=== PATIENT | female | born 1970 | race Caucasian/White ===

== ENCOUNTER 2021-03-27 08:43 | Emergency (ER) | payer OTHER ==
[~2021-03-27] VITALS: Ht 165.1 cm; Wt 72.6 kg
[2021-03-27 08:50] VITALS: BP_SYST 131
[2021-03-27] MEDS ORDERED: HYDROcodone/ACETAMIN 5-325 MG TAB (NORCO/ VICODIN) PO ONE (09:30)
[2021-03-27 10:14] LABS: BASOPHILS % (AUTO) 0.5 % (0.0-2.0); EOSINOPHILS # (AUTO) 0.1 K/uL (0.0-0.4); EOSINOPHILS % (AUTO) 1.8 % (0.0-4.0); HEMATOCRIT 36.7 % (36-48); HEMOGLOBIN 12.1 g/dL (12.0-16.0); LYMPHOCYTES # (AUTO) 1.4 K/uL (1.0-5.5); LYMPHOCYTES % (AUTO) 24.5 % (20.5-51.5); MEAN CORPUSCULAR HEMOGLOBIN 30 pg (27-31); MEAN CORPUSCULAR HGB CONC 33 % (32-36); MEAN CORPUSCULAR VOLUME 91 fL (79.0-98.0); MONOCYTES # (AUTO) 0.2 K/uL (0.0-1.0); NEUTROPHILS % (AUTO) 69.2 % (40.0-70.0); PLATELET COUNT (AUTO) 175 K/uL (130-430); RED BLOOD CELL COUNT(AUTO) 4.03 MIL/uL (4.2-6.2); RED CELL DISTRIBUTION WIDTH 14.2 % (9.0-15.0); WHITE BLOOD COUNT (AUTO) 5.8 K/uL (4.8-10.8)
[2021-03-27 10:24] LABS: CALCIUM 8.6 mg/dL (8.4-11.0); CREATININE 0.67 mg/dL (0.55-1.30); POTASSIUM 3.9 mmol/L (3.5-5.1)
[2021-03-27] MEDS ORDERED: IBUP-1969 PO (12:56)
[2021-03-27] MEDS ORDERED: AMOX-423 PO (12:56)
[2021-03-27] MEDS ORDERED: HYDR-3917 PO (12:56)
[2021-03-27 13:52] VITALS: BP_SYST 127
[2021-03-28] MEDS ORDERED: ONDA-8 TL (03:53)
== END 2021-03-27 13:59 | disposition home or self-care (01) ==
LOC: SED 08:43
DX: K11.20 Sialoadenitis, unspecified (principal); Z79.899 Other long term (current) drug therapy; Z98.890 Other specified postprocedural states
CPT/HCPCS: 36415; 70487; 76376; 80048; 82150; 83605; 85025; 87040; 99285; Q9967

== ENCOUNTER 2021-03-28 01:33 | Emergency (ER) | payer OTHER ==
[~2021-03-28] VITALS: Ht 160 cm; Wt 108.9 kg
[~2021-03-28 01:33] MED LIST: AMOX-423 PO; HYDR-3917 PO; IBUP-1969 PO
[2021-03-28 01:56] VITALS: BP_SYST 138
--- NOTE | 2021-03-28 01:56 | NUR ---
Patient to ER bed 8 to gown for evaluation. Side rails up.
--- NOTE | 2021-03-28 02:00 | NUR ---
PATIENT ALERT & ORIENTED X4 FROM HOME C/O RIGHT JAW PAIN THAT IS UNRELIEVED BY NORCO 10-325MG TAKEN AT 530PM AND MOTRIN TAKEN AT 8PM. PATIENT WAS SEEN HERE EARLIER TODAY FOR BLOCKED PAROTID DUCT & PRESCRIBED TWO PAIN MEDICATIONS MENTIONED ABOVE AND AUGMENTIN. PATIENT STATES SHE CANNOT STAND PAIN AND C/O NAUSEA. PAIN IS 9/10. PATIENT PLACED ON MONITOR, VSS, BREATHING EVEN AND UNLABORED, NO SIGNS OF ACUTE DISTRESS. AT BEDSIDE, WILL CONTINUE TO MONITOR.
--- NOTE | 2021-03-28 02:23 | NUR ---
ER Dr. ALVES at bedside examining patient.
[2021-03-28] MEDS ORDERED: NORMAL SALINE 5 ML DISP.SYRIN IVF ONE (02:45)
[2021-03-28] MEDS ORDERED: NACL 0.9% 1,000 ML IV ONE (02:45)
[2021-03-28] MEDS ORDERED: MORPHINE 4 MG INJ. 4 MG/ML VIAL IVP ONE (02:45)
[2021-03-28] MEDS ORDERED: cefTRIAXone 1 GM in D5W 50 ML IV ONE (02:45)
[2021-03-28] MEDS ORDERED: PROCHLORPERAZINE EDISYLATE 10 MG/2 ML VIAL IVP ONE (02:45)
--- NOTE | 2021-03-28 02:55 | NUR ---
# 20 gauge angiocath placed to RIGHT AC. Use of asceptic technique. Opsite placed over site. Blood return noted. Flushed with 10 cc of normal saline. No evidence of infiltration noted. Patient tolerated well.
[2021-03-28] MEDS ORDERED: cefTRIAXone 1 GM VIAL ONE (03:05)
--- NOTE | 2021-03-28 03:15 | NUR ---
PER DR. ALVES, BLOOD CULTURES NOT NEEDED PRIOR TO ANTIBIOTIC ADMINISTRATION. PATIENT HAD BLOOD CULTURES DRAWN ON 03/27/21 VISIT.
--- NOTE | 2021-03-28 03:52 | NUR ---
PATIENT AMBULATED WITH STEADY GAIT.
[2021-03-28] MEDS ORDERED: ONDA-8 TL (03:53)
[2021-03-28 04:07] VITALS: BP_SYST 128
--- NOTE | 2021-03-28 04:07 | NUR ---
Patient given written and verbal discharge instructions and verbalizes understanding. ER MD discussed with patient the results and treatment provided. Patient in stable condition. ID arm band removed. IV catheter removed intact and dressing applied, no active bleeding. Rx of ZOFRAN given. Patient educated on pain management and to follow up with PMD. Pain Scale 6/10. Opportunity for questions provided and answered. Medication side effect fact sheet provided.
== END 2021-03-28 04:07 | disposition home or self-care (01) ==
LOC: SED 01:33
DX: K11.21 Acute sialoadenitis (principal); Z79.899 Other long term (current) drug therapy
CPT/HCPCS: 96365; 96375; 99284; J0696; J0780; J2270; J7030

== ENCOUNTER 2021-05-16 13:32 | Emergency (ER) | payer OTHER ==
[~2021-05-16] VITALS: Ht 160 cm; Wt 95.3 kg
[~2021-05-16 13:32] MED LIST changes: +ONDA-8 TL
[2021-05-16 13:45] VITALS: BP_SYST 122
[2021-05-16] MEDS ORDERED: HYDR-3917 PO (14:46)
[2021-05-16] MEDS ORDERED: IBUP-1969 PO (14:46)
[2021-05-16] MEDS: MORPHINE 4 MG INJ. 4 MG/ML VIAL IM ONE (15:35)
[2021-05-16 15:55] VITALS: BP_SYST 122
== END 2021-05-16 15:55 | disposition home or self-care (01) ==
LOC: SED 13:32
DX: S92.351A Displaced fracture of fifth metatarsal bone, right foot, initial encounter for closed fracture (principal); Z79.899 Other long term (current) drug therapy; W01.0XXA Fall on same level from slipping, tripping and stumbling without subsequent striking against object, initial encounter; Y93.89 Activity, other specified; Y92.832 Beach as the place of occurrence of the external cause; Y99.8 Other external cause status
CPT/HCPCS: 73630; 96372; 99283; J2270